=== PATIENT | female | born 1990 | race Caucasian/White ===

== ENCOUNTER 2020-03-14 20:49 | Emergency (ER) | payer MEDICAID ==
[~2020-03-14] VITALS: Ht 180.3 cm; Wt 88.6 kg
[2020-03-14] MEDS ORDERED: AUGMENTIN 875-1 EAC1 PO (21:54)
[2020-03-14 22:03] VITALS: BP 138/89
== END 2020-03-14 22:05 | disposition home or self-care (01) ==
LOC: ED 20:49
DX: J02.9 Acute pharyngitis, unspecified (principal); H66.92 Otitis media, unspecified, left ear; F17.210 Nicotine dependence, cigarettes, uncomplicated

== ENCOUNTER 2022-02-06 20:24 | Emergency (ER) | payer MEDICAID ==
[~2022-02-06] VITALS: Ht 172.7 cm; Wt 100.0 kg
[~2022-02-06 20:24] MED LIST: AUGMENTIN 875-1 EAC1 PO
[2022-02-06 20:48] VITALS: BP 144/96
[2022-02-06 21:38] LABS: BASO # 0.01 K/mm3 (0.02-0.10); HEMATOCRIT 38.5 % (37.0-47.0); HEMOGLOBIN 13.4 g/dL (12.5-16.0); MEAN CELL VOLUME 92 fl (78-100); MEAN CORPUSCULAR HEMOGLOBIN 32 pg (27-31); MEAN CORPUSCULAR HGB CONC 35 g/dL (33-37); MEAN PLATELET VOLUME 10.3 fl (7.4-10.4); MONO # 0.65 K/mm3 (0.20-0.80); NEU # 6.56 K/mm3 (1.40-6.50); PLATELET COUNT 228 K/mm3 (130-400); RED BLOOD COUNT 4.17 M/mm3 (4.10-5.30); RED CELL DISTRIBUTION WIDTH 12.3 % (11.5-14.5); WHITE BLOOD COUNT 9.7 K/mm3 (4.8-10.8)
[2022-02-06 21:52] LABS: ALBUMIN 3.9 g/dL (3.5-5.0)
[2022-02-06 21:53] LABS: POTASSIUM 3.6 mmol/L (3.5-5.1)
[2022-02-06 21:54] LABS: CALCIUM 8.7 mg/dL (8.3-10.5)
[2022-02-06 21:55] LABS: TOTAL PROTEIN 6.6 g/dL (6.4-8.3)
[2022-02-06 21:57] LABS: TOTAL BILIRUBIN 0.7 mg/dL (0.2-1.2)
[2022-02-06 22:55] LABS: URINE WBC 0 /hpf (0-3)
[2022-02-06 23:02] LABS: URINE APPEARANCE CLEAR; URINE BILIRUBIN NEGATIVE (NEGATIVE); URINE BLOOD NEGATIVE (NEGATIVE); URINE COLOR YELLOW; URINE GLUCOSE NEGATIVE (NEGATIVE); URINE KETONE NEGATIVE (NEGATIVE); URINE LEUKOCYTE ESTERASE NEGATIVE (NEGATIVE); URINE MUCUS PRESENT (NOT PRESENT); URINE NITRATE NEGATIVE (NEGATIVE); URINE PROTEIN(semi-quant) NEGATIVE (NEGATIVE); URINE UROBILINOGEN NORMAL (NORMAL)
== END 2022-02-07 00:17 | disposition home or self-care (01) ==
LOC: ED 20:24
PROVIDERS: Family Medicine
DX: R10.30 Lower abdominal pain, unspecified (principal); Z28.310 Unvaccinated for COVID-19
CPT/HCPCS: J1885

== ENCOUNTER 2024-08-18 15:07 | Emergency (ER) | payer MEDICAID ==
[~2024-08-18] VITALS: Ht 172.7 cm; Wt 97.7 kg
[2024-08-18] MEDS ORDERED: TIZANIDINE2 MG PO (15:28)
[2024-08-18] MEDS ORDERED: VOLTAREN ARTHRI20 GM TP (15:28)
[2024-08-18 15:44] VITALS: BP 128/88
== END 2024-08-18 15:49 | disposition home or self-care (01) ==
LOC: ED 15:07
DX: M25.512 Pain in left shoulder (principal); X58.XXXA Exposure to other specified factors, initial encounter; Y93.B2 Activity, push-ups, pull-ups, sit-ups

== ENCOUNTER 2024-09-19 11:22 | Emergency (ER) | payer MEDICAID ==
[~2024-09-19] VITALS: Ht 175.3 cm; Wt 94.1 kg
[~2024-09-19 11:22] MED LIST changes: +TIZANIDINE2 MG PO; +VOLTAREN ARTHRI20 GM TP
[2024-09-19] MEDS ORDERED: ZEPBOUND5 MG/0.5 M SQ (11:26)
[2024-09-19] MEDS ORDERED: BUDESONIDE-FO10.2 G1 IH (11:27)
[2024-09-19] MEDS ORDERED: PROAIR HFA0.09 MG/AC IH (11:27)
[2024-09-19] MEDS ORDERED: ZOVIRAX400 MG PO (11:27)
[2024-09-19] MEDS ORDERED: WELLBUTRIN XL300 M1 PO (11:27)
[2024-09-19] MEDS ORDERED: MELOXICAM15 MG PO (11:28)
[2024-09-19] MEDS ORDERED: Orphenadrine 60 MG/2ML AMP IM ONE (11:45)
[2024-09-19] MEDS ORDERED: Ketorolac 30 MG/ML VIAL IM ONE (11:45)
[2024-09-19] MEDS ORDERED: KETOROLAC10 MG PO (12:34)
[2024-09-19] MEDS ORDERED: CYCLOBENZAPRINE10 M1 PO (12:34)
[2024-09-19 12:40] VITALS: BP 126/90
== END 2024-09-19 12:40 | disposition home or self-care (01) ==
LOC: ED 11:22
DX: M54.50 Low back pain, unspecified (principal); E66.9 Obesity, unspecified; Z68.30 Body mass index [BMI] 30.0-30.9, adult
CPT/HCPCS: J1885; J2360